=== PATIENT | male | born 1955 | race Caucasian/White ===

== ENCOUNTER 2020-09-03 04:23 | Day surgery (SDC) | payer BC ==
[2020-09-02 09:46] VITALS: BMI 28.1
[2020-09-03 10:17] VITALS: TEMP 96.8
[2020-09-03 12:12] VITALS: BP 131/73; PULSE 53
== END 2020-09-03 10:30 | disposition home or self-care (01) ==
LOC: JASU-ENDO 04:23
PROVIDERS: ATTEND Internal Medicine Gastroenterology
PROC: 0DJD8ZZ Inspection of Lower Intestinal Tract, Via Natural or Artificial Opening Endoscopic (ICD-10-PCS; principal; 2020-09-03 08:15)
DX: Z12.11 Encounter for screening for malignant neoplasm of colon (principal); K64.8 Other hemorrhoids; Z80.0 Family history of malignant neoplasm of digestive organs